=== PATIENT | male | born 1950 | race Caucasian/White ===

== ENCOUNTER 2019-07-09 09:02 | Outpatient (CLI) | payer BC ==
--- NOTE | 2019-07-09 11:46 | MRI ---
MR OF THE PELVIS WITH AND WITHOUT CONTRAST INDICATION: Malignant neoplasm of the prostate status post biopsy in May 2019. COMPARISON: None TECHNIQUE: Multiplanar, multisequence MR images were obtained of the pelvis with and without IV contr ast. 15 cc of MultiHance was utilized for the examination. The examination was reviewed on a separate [employer] 3-D workstation for multiplanar metric evaluation. FINDINGS: Prostate size: The prostate measured 4.9 x 3.3 x 4.0cm. 26.87 cc. Peripheral zone: No area of restricted diffusion is seen within the peripheral zone. Central zone: There is a 1.8 x 1.1 cm partially encapsulated, homogeneously hypointense nodular lesio n that protrudes into the lateral aspect of the peripheral zone within the left mid gland and left prosthetic apex. The lesion demonstrates prominent restricted diffusion. No additional lesion is evid ent. Neural vasculature: No evidence of neurovascular invasion Regional lymphadenopathy: None Dynamic contrast enhancement: Negative. Osseous structures: There is a 5 mm oval T1 and T2 hypointense lesion seen on image 20 of series 9 im age 12 of series 8 and additional 1 cm T1 hypointense lesion is seen within the left ilium on image 7 of series 8. There is a 1.1 cm lesion in the right ilium on image 12 of series 8. Additional findings: There is some peripheral areas of T1 hyperintensity within the peripheral zone m ost consistent with residual hemorrhage from the patient's prior biopsy.. IMPRESSION: 1. PIRADS 4- High(clinically significant cancer is likely to be present.) 2. Areas of T1 hypointensity seen within the right sacral ala and both jasbir may reflect small bone is lands. Further evaluation with a whole-body bone scan is recommended. CT of the pelvis may also be helpful for further characterization of these bone lesions. Osseous osteoblastic metastatic disease i s not excluded.
[2019-07-09] MEDS ORDERED: Magnevist 469MG/ML 20 ML VIAL ONE (14:15)
== END 2019-07-09 09:03 | disposition home or self-care (01) ==
LOC: TBSIIMAG 09:02
PROVIDERS: ATTEND Urology
DX: C61 Malignant neoplasm of prostate (principal); M53.3 Sacrococcygeal disorders, not elsewhere classified
CPT/HCPCS: 72197; 82565; A9579

== ENCOUNTER 2019-07-23 09:59 | Outpatient (CLI) | payer BC ==
--- NOTE | 2019-07-23 15:32 | NM ---
EXAM: NM Bone Scan STANDARD PROVIDED CLINICAL HISTORY: Malignant tumor prostate gland. With MRI examination on 07/09/2019 demonstrating a T1 hypointense lesio n in the region of the right sacral ala as well as each iliac bone. COMPARISON: MRI pelvis on 07/09/2019 FINDINGS: There is mild increased uptake in the bilateral shoulders and involving the region of the first carpa l metacarpal joints bilaterally as well as the region of the right sternal manubrial joint and in the lower lumbar spine which are in a pattern suggestive of degenerative changes. There is a area of mild focal increased uptake seen overlying the region of the right iliac bone jason cent to the sacroiliac joint. A low T1 weighted signal intensity structure measuring 1.1 cm was seen in this region this likely corresponds to that abnormality on MRI exam. The intensity of the upt christie is not diagnostic of a metastatic lesion, this could potentially represent a metastatic lesion. However, uptake can also be seen in large bone islands. CT scan pelvis to evaluate for the morphologi douglas characteristics of this lesion are recommended. The additional lesions within the left iliac bone and right sacral ala do not demonstrate uptake of r adiotracer on this examination but are much smaller in size and may be below resolution for bone scan. No additional areas of abnormal uptake are seen to suggest evidence of metastatic disease. Focus of i ncreased activity overlies the region of the left maxillary antrum may relate to sinus disease. IMPRESSION: 1. Single focus of mild increased uptake of radiotracer seen in the right iliac bone which is thought to correspond to the larger hypointense lesion in the right iliac bone. As noted above, the intensity of uptake is not entirely consistent with a metastatic lesion; although, this is a possibil ity. Uptake of radiotracer within a prominent bone island is also a possibility. CT pelvis is recommended to evaluate for morphological characteristics of this lesion. 2. No abnormal uptake of radiotracer is seen in the additional subcentimeter lesions in the left jasbir c bone and right sacral ala and may be below the resolution of bone scan.
== END 2019-07-23 10:00 | disposition home or self-care (01) ==
LOC: NM 09:59
PROVIDERS: ATTEND Urology
DX: C61 Malignant neoplasm of prostate (principal); M89.9 Disorder of bone, unspecified
CPT/HCPCS: 78306; A9503